=== PATIENT | female | born 1965 | race Caucasian/White ===

== ENCOUNTER 2021-04-10 14:48 | Emergency (ER) | payer BC ==
[~2021-04-10] VITALS: Ht 170.2 cm; Wt 90.9 kg
[2021-04-10 14:54] VITALS: BP 185/96; Ht 170.2 cm; Wt 90.9 kg
[2021-04-10] MEDS ORDERED: MOBIC7.5 MG PO (14:57)
[2021-04-10] MEDS ORDERED: BUSPIRONE HCL30 MG PO (14:58)
[2021-04-10] MEDS ORDERED: NEURONTIN 300300 MG PO (15:50)
== END 2021-04-10 16:30 | disposition home or self-care (01) ==
LOC: D.ER 14:48
DX: M79.7 Fibromyalgia (principal); M19.90 Unspecified osteoarthritis, unspecified site